=== PATIENT | male | born 1965 | race Caucasian/White ===

== ENCOUNTER 2017-09-04 19:25 | Observation (INO) | payer OTHER ==
[2017-09-04] MEDS ORDERED: HALOPERIDOL LACTATE 5 MG/ML SOL IM ONE (19:30)
[2017-09-04] MEDS ORDERED: SODIUM CHLORIDE 0.9% 1000ML 1,000 ML IV ONE (19:31)
[2017-09-04] MEDS ORDERED: THIAMINE 100 MG/ML 100 MG/ML SOL IV ONE (19:35)
[2017-09-04] MEDS ORDERED: HALOPERIDOL LACTATE 5 MG/ML SOL ONE ×2 (19:40→19:50)
[2017-09-04] MEDS ORDERED: HALOPERIDOL LACTATE 5 MG/ML SOL IV ONE (19:45)
[2017-09-04 19:51] LABS: BASOPHILS % (AUTO) 1 % (0-3); EOSINOPHILS % (AUTO) 2 % (0-9); HEMATOCRIT 40 % (39-53); MEAN CORPUSCULAR HGB CONC 35.6 gm/dl (32.0-36.0); MEAN CORPUSCULAR VOLUME 87 fL (80-100); MONOCYTES % (AUTO) 8.9 % (0-12); NEUTROPHILS % (AUTO) 65.8 % (37-80)
[2017-09-04 20:05] LABS: ALBUMIN 3.3 gm/dl (3.4-5.0); CALCIUM 9.9 mg/dl (8.5-10.1)
[2017-09-04 20:06] LABS: POTASSIUM 2.9 mMol/L (3.5-5.1)
[2017-09-04] MEDS ORDERED: LORAZEPAM 2 MG/ML SOL IV PRN (20:08)
[2017-09-04] MEDS ORDERED: ALUMINUM/MAGNESIUM 30 ML SUS PO PRN (20:08)
[2017-09-04] MEDS ORDERED: ONDANSETRON HCL 4 MG/2 ML SOL IV PRN (20:08)
[2017-09-04] MEDS: SODIUM CHLORIDE 0.9% FLUSH 10 ML SOL IV SCH (20:15)
[2017-09-04] MEDS ORDERED: POTASSIUM CHLORIDE 10 MEQ TER PO ONE (20:21)
[2017-09-04] MEDS ORDERED: POTASSIUM CHLORIDE 2 MEQ/ML SOL IV SCH (20:30)
[2017-09-04] MEDS ORDERED: POTASSIUM CHLORIDE 10 MEQ TER ONE (20:33)
[2017-09-04] MEDS ORDERED: LACTATED RINGERS 1,000 ML IV ONE ×2 (21:00→22:57)
[2017-09-04] MEDS ORDERED: MAGNESIUM SULFATE 5 GM/10 ML SOL IV ONE (21:47)
[2017-09-04 21:52] LABS: AMPHETAMINES NEGATIVE (NEGATIVE); METHADONE NEGATIVE (NEGATIVE); OPIATES(OP13) NEGATIVE (NEGATIVE); OXYCODONE(OXY) NEGATIVE (NEGATIVE); PROPOXYPHENE(PPX) NEGATIVE (NEGATIVE); TRICYCLIC ANTIDEPRESSANTS NEGATIVE (NEGATIVE)
[2017-09-04] MEDS ORDERED: DIVALPROEX 250 MG TCP PO ONE (23:32)
[2017-09-04] MEDS ORDERED: THIAMINE 100 MG/ML 100 MG/ML SOL ONE (23:49)
[2017-09-05] MEDS ORDERED: AMOXIL/CLAVULANATE 400/5 ML PDR ONE (00:11)
[2017-09-05] MEDS ORDERED: LORAZEPAM 0.5 MG TAB PO PRN (00:24)
[2017-09-05 02:32] VITALS: O2SAT 97
[2017-09-05 07:31] LABS: CALCIUM 9.2 mg/dl (8.5-10.1); POTASSIUM 4.2 mMol/L (3.5-5.1)
[2017-09-05 08:11] VITALS: BP 156/94; PULSE 88; RESP 16; TEMP 97.6
[2017-09-05] MEDS: SODIUM CHLORIDE 0.9% FLUSH 10 ML SOL IV SCH (08:52)
[2017-09-05] MEDS ORDERED: OMEPRAZOLE 20 MG CAPSULE PO SCH (09:00)
[2017-09-05] MEDS ORDERED: MULTIVITAMIN2 1 EA TAB PO SCH (09:00)
[2017-09-05] MEDS ORDERED: FOLIC ACID 1 MG TAB PO SCH (09:00)
[2017-09-05] MEDS ORDERED: THIAMINE 100 MG TAB PO SCH (09:00)
[2017-09-05] MEDS ORDERED: PANTOPRAZOLE SODIUM 40 MG ECT PO SCH (09:00)
[2017-09-05] MEDS ORDERED: BUSPIRONE HCL 5 MG TAB PO SCH (09:00)
[2017-09-05] MEDS ORDERED: AMOXIL/CLAVULANATE 875/125 TAB PO SCH ×2 (09:00)
[2017-09-05] MEDS ORDERED: AUGMENTIN(FRIDGE) 400 MG/5 ML PO SCH (09:00)
[2017-09-05] MEDS ORDERED: Non-Formulary Medication MISC (Divalproex Sodium 1,000 mg) PO SCH (21:00)
== END 2017-09-05 10:20 | disposition home or self-care (01) | DRG 897 ==
LOC: ED 19:25 → ACUTE CARE 09-05 00:01
PROVIDERS: ADMIT Surgery Surgical Critical Care; ATTEND Family Medicine
DX: F10.920 Alcohol use, unspecified with intoxication, uncomplicated (principal); E87.6 Hypokalemia
CPT/HCPCS: 36415; 80048; 80053; 80305; 80307; 83735; 84132; 85025; 85610; 93005; 93012; 96365; 96366; 96372; 96374; 96375; 99217; 99284; 99285; J1630; J3475; J3480

== ENCOUNTER 2017-12-29 07:56 | Day surgery (SDC) | payer OTHER ==
[~2017-12-29 07:56] MED LIST: PROPOFOL 500 MG/50 ML EMU IV ONE
[2017-12-29 10:16] VITALS: BP 111/75; PULSE 71; RESP 20; TEMP 97; O2SAT 96
== END 2017-12-29 10:30 | disposition home or self-care (01) | DRG 951 ==
LOC: SURG 07:56
PROVIDERS: ATTEND Surgery
DX: Z12.11 Encounter for screening for malignant neoplasm of colon (principal); K57.32 Diverticulitis of large intestine without perforation or abscess without bleeding; D12.3 Benign neoplasm of transverse colon
CPT/HCPCS: 99001; J2704

== ENCOUNTER 2018-12-28 15:51 | Emergency (ER) | payer OTHER ==
[2018-12-28 16:10] VITALS: BP 148/101; PULSE 66; RESP 18; TEMP 97.2; O2SAT 97
[2018-12-28 16:31] LABS: BASOPHILS % (AUTO) 1 % (0-3); EOSINOPHILS % (AUTO) 3 % (0-9); HEMATOCRIT 44 % (39-53); HEMOGLOBIN 14.9 gm/dl (13.5-17.7); LYMPHOCYTES % (AUTO) 26.6 % (10-50); MEAN CORPUSCULAR HEMOGLOBIN 30.2 pg (27.0-32.0); MEAN CORPUSCULAR HGB CONC 33.8 gm/dl (32.0-36.0); MEAN CORPUSCULAR VOLUME 90 fL (80-100); MONOCYTES % (AUTO) 13.3 % (0-12); NEUTROPHILS % (AUTO) 55.9 % (37-80)
[2018-12-28 16:45] LABS: ALBUMIN 3.2 gm/dl (3.4-5.0); BILIRUBIN,TOTAL 0.2 mg/dl (0.2-1.0); CALCIUM 9.3 mg/dl (8.5-10.1); CARBON DIOXIDE 29.1 mEq/L (21-32); CREATININE 1.12 mg/dl (0.80-1.30); TOTAL PROTEIN 6.6 gm/dl (6.4-8.2)
[2018-12-28 16:46] LABS: ALCOHOL 0.263 gm/dl (0.000-0.08)
== END 2018-12-28 16:44 | disposition left against medical advice (07) | DRG 897 ==
LOC: ED 15:51
DX: F10.10 Alcohol abuse, uncomplicated (principal); F18.2 Inhalant dependence; Z53.21 Procedure and treatment not carried out due to patient leaving prior to being seen by health care provider
CPT/HCPCS: 36415; 80053; 80307; 85025; 99282